=== PATIENT | male | born 1950 | race Caucasian/White ===

== ENCOUNTER 2016-09-06 10:17 | Outpatient (CLI) | payer MEDICARE ==
[2016-08-24 16:42] VITALS: O2SAT 95
== END 2016-09-06 10:18 | disposition home or self-care (01) | DRG 561 ==
LOC: CONVCARE 10:17
PROVIDERS: ATTEND Orthopaedic Surgery
DX: S52.032D Displaced fracture of olecranon process with intraarticular extension of left ulna, subsequent encounter for closed fracture with routine healing (principal); S62.301D Unspecified fracture of second metacarpal bone, left hand, subsequent encounter for fracture with routine healing
CPT/HCPCS: 73070; 73130

== ENCOUNTER 2016-10-05 14:03 | Outpatient (CLI) | payer MEDICARE ==
[2016-08-24 16:42] VITALS: O2SAT 95
== END 2016-10-05 14:04 | disposition home or self-care (01) | DRG 561 ==
LOC: CONVCARE 14:03
PROVIDERS: ATTEND Orthopaedic Surgery
DX: S52.022D Displaced fracture of olecranon process without intraarticular extension of left ulna, subsequent encounter for closed fracture with routine healing (principal)
CPT/HCPCS: 73070

== ENCOUNTER 2016-11-01 13:06 | Outpatient (CLI) | payer MEDICARE ==
[2016-08-24 16:42] VITALS: O2SAT 95
== END 2016-11-01 13:07 | disposition home or self-care (01) | DRG 561 ==
LOC: CONVCARE 13:06
PROVIDERS: ATTEND Orthopaedic Surgery
DX: S52.022D Displaced fracture of olecranon process without intraarticular extension of left ulna, subsequent encounter for closed fracture with routine healing (principal)
CPT/HCPCS: 73070

== ENCOUNTER 2016-11-29 12:35 | Outpatient (CLI) | payer MEDICARE ==
[2016-08-24 16:42] VITALS: O2SAT 95
== END 2016-11-29 12:36 | disposition home or self-care (01) | DRG 561 ==
LOC: RAD 12:35
PROVIDERS: ATTEND Orthopaedic Surgery
DX: S52.022D Displaced fracture of olecranon process without intraarticular extension of left ulna, subsequent encounter for closed fracture with routine healing (principal)
CPT/HCPCS: 73070

== ENCOUNTER 2017-01-17 07:56 | Day surgery (SDC) | payer MEDICARE ==
[2017-01-17 08:22] VITALS: RESP 16
[2017-01-17] MEDS ORDERED: PROPOFOL 500 MG/50 ML EMU IV ONE (08:51)
[2017-01-17] MEDS ORDERED: MIDAZOLAM 2 MG/2 ML SOL ONE (08:53)
[2017-01-17] MEDS ORDERED: ONDANSETRON HCL 4 MG/2 ML SOL ONE (08:53)
[2017-01-17] MEDS ORDERED: FENTANYL 100MCG/2ML SOL ONE (08:53)
[2017-01-17] MEDS ORDERED: CEFAZOLIN SODIUM 1 GM PDS ONE (08:55)
[2017-01-17] MEDS: LIDOCAINE HCL 1% MPF SOL ONE (09:41)
[2017-01-17] MEDS ORDERED: KETOROLAC TROMETHAMINE 30 MG/ML SOL ONE (09:48)
[2017-01-17 11:12] VITALS: BP 127/73; PULSE 67; TEMP 96.7; O2SAT 98
== END 2017-01-17 11:29 | disposition home or self-care (01) | DRG 561 ==
LOC: SURG 07:56
PROVIDERS: ATTEND Orthopaedic Surgery
DX: Z47.2 Encounter for removal of internal fixation device (principal); Z87.81 Personal history of (healed) traumatic fracture
CPT/HCPCS: 73070; 76000; J0690; J1885; J2250; J2405; J3010; J2001; J2704

== ENCOUNTER 2017-02-21 08:55 | Outpatient (CLI) | payer MEDICARE ==
[2017-01-17 11:12] VITALS: O2SAT 98
== END 2017-02-21 08:56 | disposition home or self-care (01) | DRG 561 ==
LOC: CONVCARE 08:55
PROVIDERS: ATTEND Orthopaedic Surgery
DX: S52.022D Displaced fracture of olecranon process without intraarticular extension of left ulna, subsequent encounter for closed fracture with routine healing (principal)
CPT/HCPCS: 73070